=== PATIENT | female | born 1975 | race Caucasian/White ===

== ENCOUNTER 2018-11-11 17:47 | Emergency (ER) | payer MEDICAID ==
[~2018-11-11] VITALS: Ht 175.3 cm; Wt 95.0 kg
[2018-11-11 17:55] VITALS: BP 118/78
== END 2018-11-11 18:41 | disposition home or self-care (01) ==
LOC: ED 18:00
DX: T14.8XXA Other injury of unspecified body region, initial encounter (principal); Z72.9 Problem related to lifestyle, unspecified; W57.XXXA Bitten or stung by nonvenomous insect and other nonvenomous arthropods, initial encounter; Y93.89 Activity, other specified; Y92.89 Other specified places as the place of occurrence of the external cause; Y99.8 Other external cause status
CPT/HCPCS: 99283

== ENCOUNTER 2020-10-31 18:11 | Emergency (ER) | payer MEDICAID ==
[~2020-10-31] VITALS: Ht 162.6 cm; Wt 87.0 kg
[2020-10-31 18:18] VITALS: BP 140/85
[2020-10-31] MEDS ORDERED: FLUORESCEIN OPHTHALMIC 1 MG STRIP EACHEYE ONE (18:30)
[2020-10-31] MEDS ORDERED: PROPARACAINE OPHTH 0.5%, 15ML EACHEYE ONE (18:30)
--- NOTE | 2020-10-31 18:54 | NUR ---
Report from Rishi SCHOFIELD
--- NOTE | 2020-10-31 19:25 | NUR ---
Pt tolerated bilat eye irrigation well, pt reports decrease in pain in eyes post irrigation
== END 2020-10-31 21:29 | disposition home or self-care (01) ==
LOC: ED 18:26
DX: H10.213 Acute toxic conjunctivitis, bilateral (principal); Z87.891 Personal history of nicotine dependence
CPT/HCPCS: 99283